=== PATIENT | male | born 1955 | race Caucasian/White ===

== ENCOUNTER 2016-12-07 09:18 | Outpatient (CLI) | payer BC | END 2016-12-07 09:19 | LOC: NAVSJIPCSP 09:18 | PROVIDERS: ATTEND Internal Medicine | DX: E78.5 Hyperlipidemia, unspecified (principal) | CPT/HCPCS: 36415; 80061 ==

== ENCOUNTER 2017-03-29 09:47 | Outpatient (CLI) | payer BC ==
[2017-03-29 13:15] LABS: Cholesterol 174 mg/dl (< 200 Desired); HDL Cholesterol 35 mg/dL (>60 Neg Risk); Triglycerides 464 mg/dL (Less than 150)
== END 2017-03-29 09:48 | disposition home or self-care (01) ==
LOC: NAVSJIPCSP 09:47
PROVIDERS: ATTEND Internal Medicine
DX: E78.5 Hyperlipidemia, unspecified (principal); Z79.899 Other long term (current) drug therapy
CPT/HCPCS: 36415; 80061